=== PATIENT | male | born 1950 | race Caucasian/White ===

== ENCOUNTER 2021-09-11 05:38 | Emergency (ER) | payer MEDICARE, OTHER, SELFPAY ==
[2021-09-11] VITALS (12 sets, daily range): BP systolic 136–166; BP diastolic 67–80; PULSE 64–87; RESP 16–17; TEMP 36.6; O2SAT 78–99; BMI 24.3
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
--- NOTE | 2021-09-11 05:41 | DI.RAD.S_ITS ---
PROCEDURE: XR ELBOW LT MIN 3V INDICATIONS: left elbow pain TECHNIQUE: 4 views of the elbow were acquired. COMPARISON: None. FINDINGS: Bones: Prior fixation of mid radial and ulnar shafts are seen. Age indeterminate oblique fracture involving proximal ulnar shaft extending to proximal olecranon concerning for acute fractures new since prior study. No suspicious bony lesions. Soft tissues: Significant dorsal elbow soft tissue swelling . No significant elbow joint effusion. No suspicious soft tissue calcifications. IMPRESSION: Age indeterminate comminuted and nondisplaced fracture through proximal ulna extending to proximal olecranon with marked dorsal soft tissue swelling. Clinical correlation and comparison with prior study can be helpful. No significant discrepancies from preliminary reading. Dictated by: Oleksandr Armenta M.D. on 09/11/2021 at 8:05 Approved by: Oleksandr Armenta M.D. on 09/11/2021 at 8:07
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
[2021-09-11] MEDS: MORPHINE 2 MG/ML INJ IV ×3 (06:59→11:09)
[2021-09-11] MEDS: AMPICILLIN/SULBACTAM 3 GM 3 GM in SODIUM CHLORIDE 0.9% 100 ML IV (06:59)
[2021-09-11 08:03] LABS: COVID19 -Nasal RAPID Negative (Negative)
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
--- NOTE | 2021-09-11 08:47 | PC.NURSE ---
Gauze saturated with blood, I removed the gauze over the left elbow wound and gently lifted arm to rinse wound with saline. I then reapplied a wet to dry pressure dressing over wound to try to stop bleeding. Dr. Garcia aware. I then attempted to draw blood but patient refused to allow me to do so.
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
== END 2021-09-11 11:46 | disposition short-term general hospital (02) ==
PROVIDERS: Emergency Medicine; Emergency Provider Emergency Medicine
DX: S52.022B Displaced fracture of olecranon process without intraarticular extension of left ulna, initial encounter for open fracture type I or II (principal); S52.092B Other fracture of upper end of left ulna, initial encounter for open fracture type I or II; S52.135 Nondisplaced fracture of neck of left radius; F17.200 Nicotine dependence, unspecified, uncomplicated; V19.40XA Pedal cycle driver injured in collision with unspecified motor vehicles in traffic accident, initial encounter; Y92.410 Unspecified street and highway as the place of occurrence of the external cause; Z20.822 Contact with and (suspected) exposure to COVID-19
CPT/HCPCS: 29105; 70450; 71045; 72125; 73080; 73200; 87635; 96365; 96366; 96375; 96376; 99285; C9803; J0295; J2270

== ENCOUNTER 2021-10-29 00:18 | Emergency (ER) | payer MEDICARE, OTHER, SELFPAY ==
[2021-10-29 00:30] VITALS: BP 128/79; PULSE 85; RESP 14; TEMP 36.9; O2SAT 98; BMI 24.3
[2021-10-29] MEDS: OXYMETAZOLINE NASAL SPRAY 15 ML 2 SPRAYS NASAL (00:50)
[2021-10-29] MEDS: SILVER NITRATE STICK 1 EACH TOP (00:51)
[2021-10-29] MEDS: TRANEXAMIC ACID 1,000 MG VIAL 1000 MG MM (01:41)
--- NOTE | 2021-10-29 02:41 | ED_ITS ---
HPI - Epistaxis General Chief complaint: Nasal Problem Stated complaint: Nose bleed Time Seen by Provider: 10/29/21 00:29 Source: patient and EMS Mode of arrival: EMS History of Present Illness HPI Narrative: 71-year-old male smoker with history of alcohol use and nose bleeds requiring cauterization at least 2 times prior presents by EMS for evaluation of right- sided nose bleed for about 1 hour prior to arrival. He denies any trauma or injury and takes no blood thinners. He states that he was able to stop the bleeding by packing it with napkins. He did feel some blood dripping down the back of his throat but is largely improved at this point. He is not dizzy nor weak or lightheaded. He denies any upper respiratory complaints such as chest pain or shortness of breath. Related Data Home Medications Medication Instructions Recorded Confirmed No Known Home Medications 09/11/21 09/11/21 Allergies Allergy/AdvReac Type Severity Reaction Status Date / Time No Known Drug Allergies Allergy Verified 09/11/21 06:43 Review of Systems Review of Systems Narrative: GENERAL: Denies chills, fatigue, malaise, fever, sweats. HEENT: See HPI RESPIRATORY: Denies dyspnea, cough, wheezing, hemoptysis, sputum. CARDIOVASCULAR: Denies chest pain, palpitations, orthopnea, edema, GASTROINTESTINAL: Denies nausea, vomiting, abdominal pain, diarrhea, constipation, melena. : Denies dysuria, frequency, incontinence, hematuria, urinary retention. MUSCULOSKELETAL: denies weakness, joint pain, or bony pain SKIN: Denies rash, skin lesions, or other NEUROLOGIC: Denies weakness, headache, numbness, change in speech, confusion, seizures, incoordination. PSYCHIATRIC: No concerning psychosocial issues. 12 point review of systems is negative except for those stated above Patient History Social History Smoking Status: Current every day smoker Smoking Status: Current every day smoker alcohol intake frequency: 0-2 drinks per day Substance Use Type: marijuana Exam Narrative Exam Narrative: GENERAL: [71 year old patient appears stated age. Well-developed patient, in mild distress. HEAD: Atraumatic. Normocephalic. EYES: Pupils equal round and reactive. Extraocular motions intact. No scleral icterus. No injection or drainage. ENT: Bright red bleeding with fresh clots from right nostril, dry clots on lips Throat without erythema, tonsillar hypertrophy or exudate. Airway patent. NECK: Trachea midline. Non tender CARDIOVASCULAR: Regular rate and rhythm without murmurs, gallops, or rubs. RESPIRATORY: Clear to auscultation. Breath sounds equal bilaterally. No wheezes, rales, or rhonchi. GASTROINTESTINAL: Abdomen soft, non-tender, nondistended. EXTREMITIES: No edema or joint tenderness. BACK: Nontender without deformity or crepitance. No flank tenderness. NEURO: AOx3. SKIN: No rash or erythema of visible areas Initial Vital Signs Initial Vital Signs: Vital Signs Temperature 98.4 F 10/29/21 00:30 Pulse Rate 85 10/29/21 00:30 Respiratory Rate 14 10/29/21 00:30 Blood Pressure 128/79 10/29/21 00:30 Pulse Oximetry 98 10/29/21 00:30 Procedures Epistaxis Control Time Out Performed: Yes Nostril: right Nose Prepped With: oxymetazoline Direct Inspection: yes and anterior source identified Clots Removed by: blowing nose and suction Device Inserted: hemostatic balloon Device Size: 5 Complications: pain Course Orders Ordered: Discontinued Medications Oxymetazoline HCl (Oxymetazoline Nasal [place] 15 Ml) 2 sprays NASAL NOW ONE Stop: 10/29/21 00:48 Last Admin: 10/29/21 00:50 Dose: 2 sprays Documented by: FRANCINE Silver Nitrate/Potassium Nitrate (Silver Nitrate Stick) 1 each TOP NOW ONE Stop: 10/29/21 00:48 Last Admin: 10/29/21 00:51 Dose: 1 each Documented by: FRANCINE Tranexamic Acid (Tranexamic Acid 1,000 Mg Vial) 1,000 mg MM NOW ONE Stop: 10/29/21 01:16 Last Admin: 10/29/21 01:41 Dose: 1,000 mg Documented by: FRANCINE Vital Signs Vital signs: Vital Signs - 8 hr 10/29/21 00:30 Temperature 98.4 F Pulse Rate 85 Respiratory Rate 14 Blood Pressure 128/79 Pulse Oximetry 98 MDM - Epistaxis MDM Narrative Medical decision making narrative: Reassuring history and physical exam in patient with history of nose bleeds. Multiple anterior sites of bleeding noted but there is suspicion of posterior involvement given the volume of blood. He is free of systemic complaints such as dizziness, weakness or lightheadedness. Attempts to control bleeding were unsuccessful with a cotton swab and Afrin alone, after 15 minute time frame he continued to bleed after this modality at which point a rhino rocket was instilled after being soaked with TXA. Bleeding is well controlled, he is observed for another half an hour without recurrence. He lives in [facility] and, I called the emergency department there but they do not have local ear nose and throat, discussed this with the patient he would prefer to follow locally, he is given information for local ENT and the note has been faxed to their office. Return precautions discussed and questions answered to their apparent satisfaction Discharge Plan Departure Patient Disposition: Home Clinical Impression: Epistaxis Instructions: DI for Nosebleed Activity Restrictions/Additional Instructions: *You have been diagnosed with [ acute anterior epistaxis ] *What to do: * do not blow your nose, stick your finger in her nose, or disturb nose for the next 24 hr. If you must sneeze please sneeze out your mouth like we talked about *Follow up with your primary care provider or ENT doctor in 2-3 days, call for an appointment. Let them know you were seen in the Emergency Department and that we ask that you be seen in follow up *Return to ER if you should have any new, worsening or concerning symptoms * if you are bleeding starts again at home please place a portion of a cotton ball in your nostril and squirt some of the Afrin you were given in your nose. Apply the nose clamp and uses a watch or o'clock to time yourself for 15 min. At the end 15 min recheck for bleeding, if you continue to bleed please repeat the process for another 15 min. If at the end of 30 min you still have bleeding you should return to the emergency department Prescriptions: No Action No Known Home Medications 0RF Referrals: Flex Feldman MD [Physician] -
== END 2021-10-29 01:46 | disposition home or self-care (01) ==
PROVIDERS: Emergency Provider Emergency Medicine
DX: R04.0 Epistaxis (principal)
CPT/HCPCS: 30901; 99282; A9270